=== PATIENT | female | born 1995 | race Caucasian/White ===

== ENCOUNTER 2016-09-28 21:52 | Emergency (ER) | payer MEDICAID ==
--- NOTE | 2016-09-28 23:32 | ED Physician Chart ---
Chief Complaint/HPI - Patient Information Date Seen:: 09/28/16 Time Seen:: 23:26 Chief Complaint:: RIGHT FLANK PAIN History of Present Illness:: THIS IS A 21 YR OLD FEMALE WITH THE ON SET OF RIGHT FLANK PAIN TODAY AND BLOOD IN THE URINE. SHE STATES THAT SHE HAS HAD UTI'S IN THE PAST AND ALSO HAS RENAL STONES. SHE DENIES VOMITING AND FEVER BUT HAS BEEN NAUSEA. SHE DENIES . Historian:: Patient Review:: Nurse's Note Reviewed Review of Systems - Review of Systems General/Constitutional: No fever, No chills, No weight loss, No weakness, No diaphoresis, No edema, No loss of appetite Skin: No skin lesions, No rash, No bruising Head: No headache, No light-headedness Eyes: No loss of vision, No pain, No diplopia ENT: No earache, No nasal drainage, No sore throat, No tinnitus Neck: No neck pain, No swelling, No thyromegaly, No stiffness, No mass noted Cardio Vascular: No chest pain, No palpitations, No PND, No orthopnea, No edema Pulmonary: No SOB, No cough, No sputum, No wheezing GI: No nausea, No vomiting, No diarrhea, Pain, No melena, No hematochezia, No constipation, No hematemesis, Other (RIGHT FLANK PAIN) G/U: No dysuria, No frequency, No hematuria Musculoskeletal: No bone or joint pain, No back pain, No muscle pain Endocrine: No polyuria, No polydipsia Psychiatric: No prior psych history, No depression, No anxiety, No suicidal ideation Hematopoietic: No bruising, No lymphadenopathy Allergic/Immuno: No urticaria, No angioedema Neurological: No syncope, No focal symptoms, No weakness, No paresthesia, No headache, No seizure, No dizziness, No confusion, No vertigo Past Medical History - Past Medical History Obtainable: Yes Past Medical History: Renal stone Family History: None Social History: Non Smoker, No Alcohol, No Drug Use Surgical History: None Psychiatricy History: None Medication: Reviewed Physical Exam - Physical Examination General/Constitutional: Awake, Well-developed, well-nourished, Alert, No distress, GCS 15, Non-toxic appearing, Ambulatory Head: Atraumatic Eyes: Lids, conjuctiva normal, PERRL, EOMI Skin: Nl inspection, No rash, No skin lesions, No ecchymosis, Well hydrated, No lymphadenopathy ENMT: External ears, nose nl, Nasal exam nl, Lips, teeth, gums nl Neck: Nontender, Full ROM w/o pain, No JVD, No nuchal rigidity, No bruit, No mass, No stridor Respiratory: Nl effort/Exclusion, Clear to Auscultation, No Wheeze/Rhonchi/Rales Cardio Vascular: RRR, No murmur, gallop, rubs, NL S1 S2 GI: No organomegaly, No hernia, Normal BS's, Nondistended, No mass/bruits, No McBurney tenderness Other GI comments:: RIGHT FLANK TENDERNESS Extremities: No tenderness or effusion, Full ROM, normal strength in all extremities, No edema, Normal digits & nails Neuro/Psych: Alert/oriented, DTR's symmetric, Normal sensory exam, Normal motor strength, Judgement/insight normal, Mood normal, Normal gait, No focal deficits Misc: normal gait, Normal back, No paraspinal tenderness Labs/Radiology/EKG Results - Lab Results Results: Abnormal Lab Results 09/28/16 09/28/16 23:20 23:33 WBC 14.7 H RBC 4.64 Hgb 13.0 Hct 37.9 MCV 81.7 MCH 28.0 MCHC Differential 34.3 RDW 12.5 Plt Count 238 MPV 8.6 Neutrophils % 76.7 Lymphocytes % 16.0 L Monocytes % 6.8 Eosinophils % 0.3 Basophils % 0.2 Urine Source CLEAN C Urine Color YELLOW Urine Clarity HAZY Urine pH 7.0 Ur Specific [place] 1.010 Urine Protein NEGATIVE Urine Glucose (UA) NEGATIVE Urine Ketones NEGATIVE Urine Blood MODERATE H Urine Nitrate NEGATIVE Urine Bilirubin NEGATIVE Urine Urobilinogen 0.2 Ur Leukocyte Esterase MODERATE H Urine RBC 5-10 H Urine WBC 50-100 H Ur Epithelial Cells OCCASIONAL Urine Bacteria MODERATE ED Septic Shock - . Is Septic Shock (SBP<90, OR Lactate>4 mmol\L) present?: No Reassessment (Disposition) - Reassessment Reassessment Condition:: Improved - Diagnosis Diagnosis:: URINARY TRACT INFECTION RENAL STONE (BY hISTORY) - Aftercare/Follow up Instructions Aftercare/Follow-Up Instructions:: Counseled pt regarding lab results/diagnosis & need follow up, Refer to Discharge Instructions, Counseled pt & family regarding lab results/diagnosis & need follow up Medication Prescribed:: LIZZIE LINDSAY - Patient Disposition Discharge/Transfer:: Home Condition at Disposition:: Improved ED Discharge Plan - Patient Disposition Admit/Discharge/Transfer: PT DISCHARGED HOME Condition at Disposition: Improved
[2016-09-28 23:42] LABS: % BASOPHILS 0.2 % (0.0-2.0)
[2016-09-28 23:47] LABS: % EOSINOPHILS 0.3 % (0.0-5.0); % MONOCYTES 6.8 % (2.0-10.0); % NEUTROPHILS 76.7 % (40.0-80.0); HEMATOCRIT 37.9 % (35.0-45.0); MEAN CELL VOLUME 81.7 fl (81-100); MEAN CORPUSCULAR HGB CONC 34.3 pg (28.0-36.0); MEAN PLATELET VOLUME 8.6 fl; NEUTROPHILE ABSOLUTE 11.3 Th/cmm (1.8-8.0); PLATELET COUNT 238 Th/cmm (150-400); RED BLOOD COUNT 4.64 Mil/cmm (3.80-5.10); RED CELL DISTRIBUTION WIDTH 12.5 % (11.5-20.0); WHITE BLOOD COUNT 14.7 Th/cmm (4.8-10.8)
[2016-09-28 23:56] LABS: URINE BILIRUBIN NEGATIVE (NEGATIVE); URINE BLOOD MODERATE (NEGATIVE); URINE COLOR YELLOW; URINE GLUCOSE (UA) NEGATIVE (NEGATIVE); URINE KETONE NEGATIVE (NEGATIVE); URINE PROTEIN NEGATIVE (NEGATIVE); URINE UROBILINOGEN 0.2 E.U./dL (0.2 - 1.0)
[2016-09-28 23:58] LABS: ALB/GLOB RATIO 1.1 (1.0-1.8); ALKALINE PHOSPHATASE 50 U/L (34-104); BILIRUBIN,TOTAL 0.3 mg/dL (0.3-1.0); BUN - UREA NITROGEN 6 mg/dL (7-25); CALCIUM SERUM 9.7 mg/dL (8.6-10.3); CARBON DIOXIDE 22.5 mEq/L (21.0-31.0); CHLORIDE 102 mEq/L (98-107); CREATININE - SERUM 0.6 mg/dL (0.6-1.2); GLUCOSE 97 mg/dL (70-105); POTASSIUM SERUM 3.5 mEq/L (3.5-5.1); SGOT 18 U/L (13-39); SGPT/ALT 14 U/L (7-52); SODIUM SERUM 132 mEq/L (136-145)
[2016-09-28 23:59] LABS: URINE BACTERIA MODERATE /hpf (NONE SEEN); URINE EPITHELIAL CELLS OCCASIONAL /lpf (FEW); URINE WBC 50-100 /hpf (0-5)
[2016-09-29] MEDS ORDERED: Sodium Chloride 0.9% 1,000 ML IV ONE (00:19)
== END 2016-09-29 01:45 | disposition home or self-care (01) ==
LOC: ER 21:52
DX: N39.0 Urinary tract infection, site not specified (principal); N20.0 Calculus of kidney
CPT/HCPCS: 99284; 96372; 96374; 36415; 85025; 87086; 81001; 80053; J1885; J7030; Z7502

== ENCOUNTER 2016-12-31 17:57 | Emergency (ER) | payer MEDICAID ==
[2016-12-31 18:27] LABS: HEMATOCRIT 38.6 % (35.0-45.0); MEAN CELL VOLUME 79.1 fl (81-100); MEAN CORPUSCULAR HEMOGLOBIN 26.6 pg (27.0-31.0); MEAN CORPUSCULAR HGB CONC 33.6 pg (28.0-36.0); PLATELET COUNT 236 Th/cmm (150-400); RED BLOOD COUNT 4.88 Mil/cmm (3.80-5.10); RED CELL DISTRIBUTION WIDTH 13.4 % (11.5-20.0)
--- NOTE | 2016-12-31 18:38 | ED Physician Chart ---
Chief Complaint/HPI - Patient Information Date Seen:: 12/31/16 Time Seen:: 18:01 Chief Complaint:: EPIGASTRIC PAIN History of Present Illness:: THIS IS A 21 YO FEMALE WITH THE SUDDEN ONSET OF EPIGASTRIC PAIN THAT STARTED EARLIER TODAY. SHE ALSO STATES THAT SHE HAS VOMITING AND DIARRHEA. SHE DENIES PAINFUL URINATION AND FREQUENCY. SHE DENIES A PRIOR GALLBLADDER PROBLEM OR ULCER DISEASE. SHE DENIES FEVER AND COUGH. Allergies:: Allergies Allergy/AdvReac Type Severity Reaction Status Date / Time No Known Allergies Allergy Verified 12/31/16 18:06 Vitals:: Vital Signs - 8 hr 12/31/16 17:57 Temp 97.9 F HR 102 RR 16 BP 136/90 O2 Sat % 97 Historian:: Patient Review:: Nurse's Note Reviewed Review of Systems - Review of Systems General/Constitutional: No fever, No chills, No weight loss, No weakness, No diaphoresis, No edema, No loss of appetite Skin: No skin lesions, No rash, No bruising Head: No headache, No light-headedness Eyes: No loss of vision, No pain, No diplopia ENT: No earache, No nasal drainage, No sore throat, No tinnitus Neck: No neck pain, No swelling, No thyromegaly, No stiffness, No mass noted Cardio Vascular: No chest pain, No palpitations, No PND, No orthopnea, No edema Pulmonary: No SOB, No cough, No sputum, No wheezing GI: Nausea, Vomiting, Diarrhea, Pain, No melena, No hematochezia, No constipation, No hematemesis G/U: No dysuria, No frequency, No hematuria Musculoskeletal: No bone or joint pain, No back pain, No muscle pain Endocrine: No polyuria, No polydipsia Psychiatric: No prior psych history, No depression, No anxiety, No suicidal ideation Hematopoietic: No bruising, No lymphadenopathy Allergic/Immuno: No urticaria, No angioedema Neurological: No syncope, No focal symptoms, No weakness, No paresthesia, No headache, No seizure, No dizziness, No confusion, No vertigo Past Medical History - Past Medical History Obtainable: Yes Past Medical History: No significant medical hx Family History: None Social History: Non Smoker, Alcohol, No Drug Use Surgical History: None Psychiatricy History: None Medication: Reviewed Family Medical History - Family Member Mother History Unknown: Yes Ethnicity: Living Status: Still Living Father Hx Family Hypertension: Yes Physical Exam - Physical Examination General/Constitutional: Awake, Well-developed, well-nourished, Alert, No distress, GCS 15, Non-toxic appearing, Ambulatory Head: Atraumatic Eyes: Lids, conjuctiva normal, PERRL, EOMI Skin: Nl inspection, No rash, No skin lesions, No ecchymosis, Well hydrated, No lymphadenopathy ENMT: External ears, nose nl, Nasal exam nl, Lips, teeth, gums nl Neck: Nontender, Full ROM w/o pain, No JVD, No nuchal rigidity, No bruit, No mass, No stridor Respiratory: Nl effort/Exclusion, Clear to Auscultation, No Wheeze/Rhonchi/Rales Cardio Vascular: RRR, No murmur, gallop, rubs, NL S1 S2 GI: No tenderness/rebounding/guarding, No organomegaly, No hernia, Normal BS's, Nondistended, No mass/bruits, No McBurney tenderness : No CVA tenderness Extremities: No tenderness or effusion, Full ROM, normal strength in all extremities, No edema, Normal digits & nails Neuro/Psych: Alert/oriented, DTR's symmetric, Normal sensory exam, Normal motor strength, Judgement/insight normal, Mood normal, Normal gait, No focal deficits Misc: normal gait, Normal back, No paraspinal tenderness Labs/Radiology/EKG Results - Lab Results Results: Abnormal Lab Results 12/31/16 12/31/16 12/31/16 18:18 18:18 18:18 WBC 8.4 D RBC 4.88 Hgb 13.0 Hct 38.6 MCV 79.1 L MCH 26.6 L MCHC Differential 33.6 RDW 13.4 Plt Count 236 MPV 9.0 Neutrophils (Manual) 78 Lymphocytes 18 L Monocytes 3 Basophils 1 Platelet Estimate ADEQUATE Platelet Morphology NORMAL Microcytosis 1+ RBC Morph Micro Appear ABNORMAL Sodium 135 L Potassium 3.4 L Chloride 103 Carbon Dioxide 23.7 Anion Gap 11.7 BUN 9 Creatinine 0.7 Est GFR ( Amer) > 60.0 Est GFR (Non-Af Amer) > 60.0 BUN/Creatinine Ratio 12.9 Glucose 101 Calcium 9.6 Total Bilirubin 0.5 AST 32 ALT 29 Alkaline Phosphatase 60 Total Protein 7.3 Albumin 4.3 Globulin 3.0 Albumin/Globulin Ratio 1.4 Amylase 46 Lipase 12/31/16 18:18 WBC RBC Hgb Hct MCV MCH MCHC Differential RDW Plt Count MPV Neutrophils (Manual) Lymphocytes Monocytes Basophils Platelet Estimate Platelet Morphology Microcytosis RBC Morph Micro Appear Sodium Potassium Chloride Carbon Dioxide Anion Gap BUN Creatinine Est GFR ( Amer) Est GFR (Non-Af Amer) BUN/Creatinine Ratio Glucose Calcium Total Bilirubin AST ALT Alkaline Phosphatase Total Protein Albumin Globulin Albumin/Globulin Ratio Amylase Lipase 11 - Radiology Results Results: ultrasound of the abdomen = negative for gallstones Assessment - Assessment General Assessment: AFTER THE PATIENT WAS GIVEN ANTIBIOTICS HER SYMPTOMS ABATED. ED Septic Shock - . Is Septic Shock (SBP<90, OR Lactate>4 mmol\L) present?: No - <6hrs of presentation: Vital Signs: Vital Signs - 8 hr 12/31/16 17:57 Temp 97.9 F HR 102 RR 16 BP 136/90 O2 Sat % 97 Reassessment (Disposition) - Reassessment Reassessment Condition:: Improved - Diagnosis Diagnosis:: URINARY TRACT INFECTION - Aftercare/Follow up Instructions Aftercare/Follow-Up Instructions:: Counseled pt regarding lab results/diagnosis & need follow up, Refer to Discharge Instructions, Counseled pt & family regarding lab results/diagnosis & need follow up - Patient Disposition Discharge/Transfer:: Home Condition at Disposition:: Improved ED Discharge Plan - Patient Disposition Admit/Discharge/Transfer: PT DISCHARGED HOME Condition at Disposition: Improved
[2016-12-31 18:42] LABS: ALB/GLOB RATIO 1.4 (1.0-1.8); ALKALINE PHOSPHATASE 60 U/L (34-104); ANION GAP 11.7 (7.0-16.0); BILIRUBIN,TOTAL 0.5 mg/dL (0.3-1.0); BUN - UREA NITROGEN 9 mg/dL (7-25); BUN/CREATININE RATIO 12.9; CALCIUM SERUM 9.6 mg/dL (8.6-10.3); CARBON DIOXIDE 23.7 mEq/L (21.0-31.0); CHLORIDE 103 mEq/L (98-107); CREATININE - SERUM 0.7 mg/dL (0.6-1.2); GLUCOSE 101 mg/dL (70-105); POTASSIUM SERUM 3.4 mEq/L (3.5-5.1); SGOT 32 U/L (13-39); SGPT/ALT 29 U/L (7-52); SODIUM SERUM 135 mEq/L (136-145)
[2016-12-31 18:43] LABS: WHITE BLOOD COUNT 8.4 Th/cmm (4.8-10.8)
[2016-12-31 18:48] LABS: BASOPHIL 1 % (0-3); MICROCYTOSIS 1+; NEUTROPHILS 78 % (40-80); PLATELET ESTIMATE ADEQUATE (NORMAL); PLATELET MORPHOLOGY NORMAL (NORMAL); TOTAL CELLS COUNTED 100
[2016-12-31 19:33] LABS: URINE COLOR YELLOW
[2016-12-31 19:34] LABS: URINE BACTERIA MANY /hpf (NONE SEEN); URINE BILIRUBIN NEGATIVE (NEGATIVE); URINE BLOOD SMALL (NEGATIVE); URINE EPITHELIAL CELLS FEW /lpf (FEW); URINE GLUCOSE (UA) NEGATIVE (NEGATIVE); URINE KETONE TRACE mg/dL (NEGATIVE); URINE PH 5.5; URINE PROTEIN TRACE mg/dL (NEGATIVE); URINE UROBILINOGEN 0.2 E.U./dL (0.2 - 1.0)
[2016-12-31 19:35] LABS: URINE WBC 50-100 /hpf (0-5)
[2016-12-31 19:38] LABS: AMPHETAMINE URINE NEGATIVE (NEGATIVE); BARBITURATES URINE NEGATIVE (NEGATIVE); METHADONE URINE NEGATIVE (NEGATIVE)
--- NOTE | 2017-01-01 10:44 | Diagnostic Imaging Report ---
Abdominal ultrasound HISTORY: Pain The liver exhibits a homogeneous parenchyma. No focal lesions. No definite calculi seen within the gallbladder. No biliary dilatation. The pancreas is not well seen due to bowel gas. The kidneys appear normal bilaterally. No other retroperitoneal or intra-abdominal abnormalities. IMPRESSION: Negative examination
== END 2016-12-31 20:08 | disposition home or self-care (01) ==
LOC: ER 17:57
DX: N39.0 Urinary tract infection, site not specified (principal)
CPT/HCPCS: 36415-UA; 76700-TC; 80053-TC; 80307; 81001-TC; 81025-TC; 82150-TC; 83690-TC; 85007-TC; 85027-TC; 86592-TC; 87086-90; J0696

== ENCOUNTER 2017-06-17 22:47 | Emergency (ER) | payer MEDICAID ==
[2017-06-17 23:56] LABS: URINE MICROSCOPIC INDICATED? YES; URINE SOURCE RANDOM
[2017-06-18 00:05] LABS: % BASOPHILS 0.6 % (0.0-2.0); % EOSINOPHILS 1.3 % (0.0-5.0); % LYMPHOCYTES 33.5 % (20.0-50.0); % MONOCYTES 7.5 % (2.0-10.0); % NEUTROPHILS 57.1 % (40.0-80.0); EOSINOPHILE ABSOLUTE 0.1 Th/cmm (0.1-0.4); HEMATOCRIT 36.7 % (41.0-60); HEMOGLOBIN 12.4 gm/dL (12-16); LYMPHOCYTE ABSOLUTE 2.8 Th/cmm (1.5-3.0); MEAN CELL VOLUME 82.4 fl (81-100); MEAN CORPUSCULAR HEMOGLOBIN 27.8 pg (27.0-31.0); MEAN CORPUSCULAR HGB CONC 33.7 pg (28.0-36.0); MEAN PLATELET VOLUME 8.5 fl; MONOCYTE ABSOLUTE 0.6 Th/cmm (0.3-1.0); NEUTROPHILE ABSOLUTE 4.8 Th/cmm (1.8-8.0); PLATELET COUNT 280 Th/cmm (150-400); RED BLOOD COUNT 4.46 Mil/cmm (3.80-5.10); RED CELL DISTRIBUTION WIDTH 13.4 % (11.5-20.0); WHITE BLOOD COUNT 8.3 Th/cmm (4.8-10.8)
[2017-06-18 00:23] LABS: URINE BILIRUBIN NEGATIVE (NEGATIVE); URINE BLOOD NEGATIVE (NEGATIVE); URINE GLUCOSE (UA) NEGATIVE (NEGATIVE); URINE KETONE NEGATIVE (NEGATIVE); URINE LEUKOCYTE ESTERASE NEGATIVE (NEGATIVE); URINE NITRATE NEGATIVE (NEGATIVE); URINE PH 6.5 (4.6 - 8.0); URINE PROTEIN NEGATIVE (NEGATIVE); URINE UROBILINOGEN 0.2 E.U./dL (0.2 - 1.0)
[2017-06-18 00:24] LABS: URINE CLARITY CLEAR (CLEAR); URINE COLOR YELLOW
[2017-06-18 00:31] LABS: URINE BACTERIA MANY /hpf (NONE SEEN); URINE EPITHELIAL CELLS FEW /lpf (FEW); URINE RBC 0-2 /hpf (0-5)
[2017-06-18 00:37] LABS: HCG QUANT 853 mIU/mL
--- NOTE | 2017-06-18 00:54 | ER Physician Documentation ---
DATE OF SERVICE: 06/17/2017 HISTORY OF PRESENT ILLNESS: This is a 22-year-old female patient, date of is 1995 and she came to the hospital because she is 5 weeks' . Her last period was on 05/07/2017 and she started having epigastric pain for 1 day's duration. She has no dysuria. She has some nausea. No vomiting, no diarrhea, no fever. She used to have epigastric pain in the past, at which time she was told she may be having some gastric ulcers. She had an ultrasound done and everything was found to be negative. She had a history of frequent urinary tract infections and now she is not getting any infections. Only once she got some antibiotics. She is not taking any antibiotics. She is . Her is next to her. The patient has no bleeding through the vagina, no discharge. No diarrhea, no fever. No history of previous . This is her first . 1. REVIEW OF SYSTEMS: Her review of systems is essentially benign and negative. CARDIOVASCULAR: No history of any heart disease. No history of any rheumatic fever, valvular heart disease, pericardial disease. LUNGS: No history of difficulty breathing. No COPD, no emphysema or bronchitis. No smoking. GASTROINTESTINAL: No history of any peptic ulcer disease, inflammatory bowel disease, diarrhea, or constipation. ENDOCRINE: No diabetes mellitus, no hyper or hypothyroidism. BONES AND JOINTS: No apparent complaints. GENITOURINARY: History of previous frequent urinary tract infections. We will recheck it is now and see. CANCER: Negative. BLOOD DISEASES: Negative. All other diseases are negative. Code status is full. Pain is a 5/10, but when I felt it, it did not look like a 5/10, it looked like maybe a 1/10. PHYSICAL EXAMINATION: VITAL SIGNS: On admission examination showed temperature 98.4, pulse 110, respirations 18, blood pressure 132/91, saturation 98. Height 5 feet 2 inches, weighing 137 pounds. ABDOMEN: Soft, benign, and negative. Liver, spleen not enlarged. No free fluid in the abdominal cavity. CHEST: Clear, without any rales, rhonchi, or wheezing. CENTRAL NERVOUS SYSTEMS: Normal. IMPRESSION: The patient gives a history that she is at 5 weeks. We are going to get a test done. We are going to get a tubal ultrasound done to see if there is any tubal , ectopic, to see if there is any bleeding, rupture, tear etc., is there, and to see if everything in the genitourinary part is right. Get her CBC count to see if there is any loss of blood count, etc. If everything else is normal, she will be discharged home to be see her own physician and to see her industrial court magistrate for further treatment. In conclusion, at 5 weeks with epigastric discomfort, rule out any evidence of ectopic , rule out any bleeding, and rule out any urinary tract infection. She has some nausea, whether it is related to that, it is possible. Allergies are none known. She has no other diseases except a history of previous frequent UTIs in the past, none right now. The triage nurse, Sandy, was with me while I was interviewing her and discussed the case with her. While she was there, the plan of treatment and the discharge planning. Code status was full. We will check one more blood pressure because initial blood pressure was 132/91, to make sure that she is not hypertensive. JOB# [id number]
[2017-06-18 00:56] LABS: ANION GAP 10.2 (7.0-16.0); BUN - UREA NITROGEN 10 mg/dL (7-25); CALCIUM SERUM 9.2 mg/dL (8.6-10.3); CARBON DIOXIDE 22.4 mEq/L (21.0-31.0); CHLORIDE 106 mEq/L (98-107); CREATININE - SERUM 0.6 mg/dL (0.6-1.2); GFR AFRICAN-AMERICAN > 60.0 ml/min (>90); GFR NON AFRICAN-AMERICAN > 60.0 ml/min; GLUCOSE 119 mg/dL (70-105); POTASSIUM SERUM 3.6 mEq/L (3.5-5.1); SODIUM SERUM 135 mEq/L (136-145)
--- NOTE | 2017-06-18 02:43 | ER Physician Documentation ---
DATE OF SERVICE: 06/17/2017 FOLLOWUP REPORT We ordered some lab reports and ultrasound because she complained of epigastric pain. We were worried and wanted to make sure that she has no problem with her uterine and we concluded that she is . We got the test results done which was found to be positive in the urine. Human white count was 8.3, hemoglobin was 12.4, hematocrit was 36.7. There was no evidence of any vaginal bleeding. She had beta hCG quantitative was 853, which means she might be 800 about 4 weeks of . Her calcium level was 9.2. Beta quantitative was normal. Electrolytes were found to be normal, sodium 135, potassium 3.6, chloride 106, CO2 22.4, glucose is 119. BUN is 10, creatinine is 0.6. We got abdominal ultrasound done for her to see her tubes if at all she has any tubal or any other abnormalities that could be seen. According to the install technician, there was no intrauterine could be seen at this time of her office examination. Both ovaries could not be visualized. The patient refused transvaginal ultrasound in the presence of positive test. Ectopic cannot be ruled out. Need follow up in 2 weeks and radiologist who read this report, this was a preliminary pelvic report. In light of this, I do not think the patient needs anything further to be done by me at the present moment. The uterus measured 8.4 x 4.2 x 6.2 cm, right ovary was not visualized. Left ovary was not visualized. Endometrial thickness was 7.3 mm. Free fluid was not seen at all. Last menstrual period was 05/07/2017 and 1, para AB is all 0-0. The patient was given supportive care and we will follow up with her histotechnologist and field staff and her primary care physician and histotechnologist as needed and an TAPERING MACHINE OPERATOR as needed. The patient has mild upper epigastric discomfort, maybe some heartburn and she can take some PPI on an outpatient basis or we can give it to her here, but she does not want and the patient can be discharged for home. JOB# [id number]
--- NOTE | 2017-06-18 02:43 | ER Physician Documentation ---
DATE OF SERVICE: 06/17/2017 FOLLOWUP REPORT We ordered some lab reports and ultrasound because she complained of epigastric pain. We were worried and wanted to make sure that she has no problem with her uterine and we concluded that she is . We got the test results done which was found to be positive in the urine. Human white count was 8.3, hemoglobin was 12.4, hematocrit was 36.7. There was no evidence of any vaginal bleeding. She had beta hCG quantitative was 853, which means she might be 800 about 4 weeks of . Her calcium level was 9.2. Beta quantitative was normal. Electrolytes were found to be normal, sodium 135, potassium 3.6, chloride 106, CO2 22.4, glucose is 119. BUN is 10, creatinine is 0.6. We got abdominal ultrasound done for her to see her tubes if at all she has any tubal or any other abnormalities that could be seen. According to the photographic equipment technician, there was no intrauterine could be seen at this time of her office examination. Both ovaries could not be visualized. The patient refused transvaginal ultrasound in the presence of positive test. Ectopic cannot be ruled out. Need follow up in 2 weeks and radiologist who read this report, this was a preliminary pelvic report. In light of this, I do not think the patient needs anything further to be done by me at the present moment. The uterus measured 8.4 x 4.2 x 6.2 cm, right ovary was not visualized. Left ovary was not visualized. Endometrial thickness was 7.3 mm. Free fluid was not seen at all. Last menstrual period was 05/07/2017 and 1, para AB is all 0-0. The patient was given supportive care and we will follow up with her flight superintendent and mangle roller and her primary care physician and flight superintendent as needed and an CHAPERON as needed. The patient has mild upper epigastric discomfort, maybe some heartburn and she can take some PPI on an outpatient basis or we can give it to her here, but she does not want and the patient can be discharged for home. JOB# [id number]
--- NOTE | 2017-06-18 02:43 | ER Physician Documentation ---
DATE OF SERVICE: 06/17/2017 FOLLOWUP REPORT We ordered some lab reports and ultrasound because she complained of epigastric pain. We were worried and wanted to make sure that she has no problem with her uterine and we concluded that she is . We got the test results done which was found to be positive in the urine. Human white count was 8.3, hemoglobin was 12.4, hematocrit was 36.7. There was no evidence of any vaginal bleeding. She had beta hCG quantitative was 853, which means she might be 800 about 4 weeks of . Her calcium level was 9.2. Beta quantitative was normal. Electrolytes were found to be normal, sodium 135, potassium 3.6, chloride 106, CO2 22.4, glucose is 119. BUN is 10, creatinine is 0.6. We got abdominal ultrasound done for her to see her tubes if at all she has any tubal or any other abnormalities that could be seen. According to the central lab technician, there was no intrauterine could be seen at this time of her office examination. Both ovaries could not be visualized. The patient refused transvaginal ultrasound in the presence of positive test. Ectopic cannot be ruled out. Need follow up in 2 weeks and radiologist who read this report, this was a preliminary pelvic report. In light of this, I do not think the patient needs anything further to be done by me at the present moment. The uterus measured 8.4 x 4.2 x 6.2 cm, right ovary was not visualized. Left ovary was not visualized. Endometrial thickness was 7.3 mm. Free fluid was not seen at all. Last menstrual period was 05/07/2017 and 1, para AB is all 0-0. The patient was given supportive care and we will follow up with her tactical debriefer and public relations representative and her primary care physician and tactical debriefer as needed and an DOMESTIC CLEANER as needed. The patient has mild upper epigastric discomfort, maybe some heartburn and she can take some PPI on an outpatient basis or we can give it to her here, but she does not want and the patient can be discharged for home. JOB# [id number]
--- NOTE | 2017-06-18 07:35 | Diagnostic Imaging Report ---
Exam: Ultrasound summation of pelvis. HISTORY: Ectopic . Findings: Real-time ultrasound examination of the pelvis was performed utilizing transabdominal technique, patient refused transvaginal examination.. The study demonstrates normal echogenicity uterus measuring 8.4 x 4.2 x 6.2 cm diameter with endometrial thickness of 7.3 mm. There is no evidence for gestational sac or pole. The ovaries not visualized. No free fluid is noted in cul-de-sac. IMPRESSION: No evidence for gestational sac or pole. Ectopic gestation cannot be excluded. Follow-up ultrasound examination of pelvis and serial hCG titers recommended.
== END 2017-06-18 02:45 | disposition home or self-care (01) ==
LOC: ER 22:47
DX: O26.891 Other specified pregnancy related conditions, first trimester (principal); R10.13 Epigastric pain; R11.0 Nausea; Z3A.01 Less than 8 weeks gestation of pregnancy
CPT/HCPCS: 36415-UA; 76801-TC; 80048-TC; 81001-TC; 81003-TC; 81025-TC; 84702-TC; 85025-TC